=== PATIENT | female | born 1960 | race Caucasian/White ===

== ENCOUNTER 2018-01-03 09:18 | Outpatient (CLI) | payer MEDICAID ==
[2018-01-03 09:32] VITALS: BP 133/71
[2018-01-03] MEDS ORDERED: PANTOPRAZOLE SO40 MG ORAL (10:09)
[2018-01-03] MEDS ORDERED: CELEXA20 MG ORAL (10:09)
[2018-01-03] MEDS ORDERED: DEPAKOTE250 MG PO (10:09)
[2018-01-03] MEDS ORDERED: NORCO 5-325 TA1 EACH ORAL (10:09)
[2018-01-03] MEDS ORDERED: PROAIR HFA8.5 GM INH (10:09)
[2018-01-03] MEDS ORDERED: ZOFRAN4 M3 ORAL (10:09)
[2018-01-03] MEDS ORDERED: ASPIRIN EC325 MG ORAL (10:09)
[2018-01-03] MEDS ORDERED: MIRTAZAPINE15 MG ORAL (10:09)
--- NOTE | 2018-01-03 17:23 | GI Initial Consult Note ---
History of Present Illness General Date patient seen: January 03, 2018 Time patient seen: 16:56 Referring physician: JAIRON BERMUDEZ Reason for Consultation: PANCREATIC CYSTS Present Illness HPI 57 year old patient, referred by Dr. Jairon Bermudez for EUS to evaluate patient with history of pancreatic cyst and CBD stone. The patient presents today with c/o of abdominal pain, GERD, nausea without vomiting and abdominal bloating. Per patient, he had a laparoscopic cholecystectomy and ERCP x 2 in March of 2017. Home Meds Reported Medications Albuterol Sulfate* (PROAIR HFA*) 8.5 Gm Hfa.aer.ad, 1 PUFF INH Q6H, #8.5 GM 0 Refills 01/03/18 Hydrocodone Bit/Acetaminophen 5-325* (NORCO 5-325*) 1 Each Tablet, 1 TAB ORAL Q6H PRN for For Pain, #10 TAB 0 Refills 01/03/18 Mirtazapine* (REMERON*) 15 Mg Tablet, 15 MG ORAL BEDTIME, TAB 01/03/18 Pantoprazole* (PANTOPRAZOLE*) 40 Mg Tablet.dr, 40 MG ORAL DAILY, TAB 01/03/18 Ondansetron* (ZOFRAN*) 4 Mg Tablet, 4 MG ORAL Q6H PRN for Nausea & Vomiting, TAB 01/03/18 Citalopram Hydrobromide* (CELEXA*) 20 Mg Tablet, 20 MG ORAL DAILY, TAB 01/03/18 Aspirin* (ASPIRIN EC*) 325 Mg Tablet.dr, 325 MG ORAL DAILY, TAB 01/03/18 Divalproex Sodium* (DEPAKOTE*) 250 Mg Tablet.dr, 250 MG PO TID, TAB 01/03/18 Med list reviewed/reconciled: Yes Patient History History Provided By: Patient, Medical Record PMH Narrative RA CVA 2011 Asthma Sinusitis Gallstone - CBD stone IBS Hemorrhoids Depression Past Surgical History: Tubal Ligation Cholecystectomy March 2017 Family History Narrative Father >> CAD Mother >> PVP Social History: Reports: smoking, other - caffiene use Review of Systems All Other Systems: negative except mentioned in HPI Physical Exam Vital Signs Date Time Temp Pulse Resp B/P (MAP) Pulse Ox O2 Delivery O2 Flow Rate FiO2 01/03/18 09:32 98.6 54 16 133/71 95 98.6 Sp02 EP Interpretation: reviewed, normal General Appearance: well appearing, no apparent distress, alert Head: normocephalic EENT: PERRL/EOMI, normal ENT inspection Neck: supple Respiratory: normal breath sounds, no respiratory distress Cardiovascular: normal rate Gastrointestinal: normal inspection, non tender, soft, normal bowel sounds, non -distended Rectal: deferred Genitourinary: no CVA tenderness Musculoskeletal: normal inspection, back normal Neurologic: normal inspection, alert, oriented x3, responsive Psychiatric: normal inspection, judgement/insight normal, memory normal Skin: normal inspection, normal color, no rash, warm/dry, palpation normal, well hydrated Lymphatic: normal inspection, no adenopathy GI: Plan Problems: (1) Hepatic cyst (2) Abdominal pain (3) GERD (gastroesophageal reflux disease) (4) Nausea (5) Bloating Plan s/p EGD/colonoscopy January 2017 s/p cholecystectomy March 2017 CT was obtained and reviewed 02/2017, see full report. - No evidence of pancreatic cyst or pancreatic ductal dilation. No pancreatitis seen. - Hepatic cysts noted - 1mm CBD dilation - benign left adrenal adenoma noted At this time, patient does not require an EUS given the CT report. we will order a follow up CT to evaluate for any possible pancreatic cysts. symptomatic treatment pain mgmt cont Protonix 40 mg as ordered RTC after imaging study Seen with Dr. Kebede. Thank you for this patient referral. The patient was seen and examined at bedside and all new and available data was reviewed in the patients chart. I agree with the above findings, impression and plan. (Patient seen earlier today. Signature stamp does not reflect patient encounter time.). - MD Allison HuberS[facility]sonR[facility] January 03, 2018 17:23
== END 2018-01-03 09:50 | disposition home or self-care (01) ==
LOC: PAN 09:18
DX: R10.9 Unspecified abdominal pain (principal); K76.89 Other specified diseases of liver; K21.9 Gastro-esophageal reflux disease without esophagitis; R14.0 Abdominal distension (gaseous); Z90.49 Acquired absence of other specified parts of digestive tract; Z79.82 Long term (current) use of aspirin; F32.9 Major depressive disorder, single episode, unspecified; Z86.73 Personal history of transient ischemic attack (TIA), and cerebral infarction without residual deficits; Z98.51 Tubal ligation status; F17.200 Nicotine dependence, unspecified, uncomplicated
CPT/HCPCS: 99201